=== PATIENT | female | born 1935 | race Caucasian/White ===

== ENCOUNTER 2019-03-21 19:22 | Inpatient (IN) | payer MEDICARE, BC ==
[2019-03-21] MEDS ORDERED: Sodium Chloride 0.9% 500 ML IV ONE (19:59)
--- NOTE | 2019-03-21 20:04 | EDM.PDOC ---
ED HPI GENERAL MEDICAL PROBLEM - General Chief Complaint: Syncope Stated Complaint: syncopal episode Time Seen by Provider: 03/21/19 19:35 Source of Information: Reports: Patient, EMS, Family History Limitations: Reports: No Limitations - History of Present Illness INITIAL COMMENTS - FREE TEXT/NARRATIVE: Patient presents with family via EMS after syncopal episode approximately 30 minutes prior to arrival patient states she was walking with a walker and her daughter was behind her when she had the syncopal episode her daughter called her daughter states she went out maybe 30 seconds. She was completely normal and responsive afterwards and has no complaints at this time. Per EMS arrival she was normotensive heart rates 140 she was alert and oriented x4 neurologically intact PT is status post left hip replacement surgery was done yesterday in [place] she was discharged today and arrived home approximately 2 or 3:00 states she has been doing fine she has been eating and drinking well and up and moving. Herself and her family denies any blood thinners that were given and she was not sent home on any as well. She was sent home on Lortab 5 mg for pain which she has had no trouble taking. She has a history of chronic A. fib for the last 4 to 5 years and has had no complications she also denies being on any blood thinners for the A. fib. She denies any chest pain palpitations shortness of breath or cough lightheadedness or dizziness just the syncopal episode Onset: Today Duration: Minutes: Quality: Reports: Other (No pain whatsoever) Associated Symptoms: Reports: Diaphoresis, Syncope. Denies: Confusion, Chest Pain, Cough, cough w sputum, Fever/Chills, Headaches, Malaise, Nausea/Vomiting, Shortness of Breath, Weakness - Related Data Allergies Allergy/AdvReac Type Severity Reaction Status Date / Time No Known Allergies Allergy Verified 03/21/19 19:59 Home Meds: Home Meds Aspirin [Halfprin] 81 mg PO DAILY 12/15/17 [History] Calcium Carbonate/Vitamin D3 [Calcium 600-Vit D3 800 Tab] 1 each PO DAILY [History] Flaxseed Oil [Flaxseed] 1,000 mg PO DAILY 12/15/17 [History] Metoprolol Tartrate [Lopressor] 25 mg PO BID 12/15/17 [History] Multivitamin [Multiple Vitamins] 1 each PO DAILY 12/15/17 [History] PARoxetine [Paxil] 10 mg PO BEDTIME 12/15/17 [History] Simvastatin 1 tab PO DAILY 12/15/17 [History] Tetrahydrozoline HCl [Visine] 15 ml OP Q4H PRN 12/15/17 [History] Aspirin 325 mg PO BID 03/21/19 [History] Hydrocodone/Acetaminophen [Hydrocodon-Acetaminophen 5-325] 1 each PO BID PRN [History] Past Medical History HEENT History: Reports: Hard of Hearing, Impaired Vision, Macular Degeneration Cardiovascular History: Reports: Afib, Arrhythmia, CAD, High Cholesterol, Hypertension Other Cardiovascular History: PROXYSMAL TACHYCARDIA Respiratory History: Reports: None Gastrointestinal History: Reports: Other (See Below) Other Gastrointestinal History: FM HX colon CA. + FITT TEST Genitourinary History: Reports: None CORE PILER History: Reports: Other (See Below) Other CORE PILER History: ABNOMAL PAP SMEAR Musculoskeletal History: Reports: Osteoarthritis Neurological History: Reports: None Psychiatric History: Reports: Anxiety, Depression Endocrine/Metabolic History: Reports: None Hematologic History: Reports: None Immunologic History: Reports: None Oncologic (Cancer) History: Reports: None Dermatologic History: Reports: None - Past Surgical History Head Surgeries/Procedures: Reports: None HEENT Surgical History: Reports: Cataract Surgery Cardiovascular Surgical History: Reports: Varicose Other Cardiovascular Surgeries/Procedures: RAYNAUD'S GI Surgical History: Reports: Colonoscopy Musculoskeletal Surgical History: Reports: Shoulder Replacement Social & Family History - Tobacco Use Smoking Status *Q: Never Smoker ED ROS GENERAL - Review of Systems Review Of Systems: See Below Constitutional: Reports: No Symptoms, Diaphoresis, Other (Patient states she felt flushed for a few seconds after the syncopal episode and felt like she was sweating all over). Denies: Fever, Chills, Malaise, Weakness, Fatigue, Decreased Appetite HEENT: Reports: No Symptoms Respiratory: Reports: No Symptoms. Denies: Shortness of Breath, Wheezing, Pleuritic Chest Pain, Cough, Sputum, Hemoptysis Cardiovascular: Reports: Syncope. Denies: Chest Pain, Blood Pressure Problem, Claudication, Dyspnea on Exertion, Edema, Lightheadedness, Orthopnea, Palpitations, PND Endocrine: Reports: No Symptoms GI/Abdominal: Reports: No Symptoms. Denies: Abdominal Pain, Bloody Stool, Difficulty Swallowing, Nausea, Vomiting : Reports: No Symptoms Musculoskeletal: Reports: No Symptoms. Denies: Leg Pain, Joint Swelling Skin: Reports: No Symptoms Neurological: Reports: No Symptoms, Syncope. Denies: Confusion, Dizziness, Headache, Numbness, Paresthesia, Pre-Existing Deficit, Tingling, Difficulty Walking, Weakness, Change in Speech, Gait Disturbance Psychiatric: Reports: No Symptoms Hematologic/Lymphatic: Reports: No Symptoms Immunologic: Reports: No Symptoms Free Text/Narrative/Comment: Per patient and daughter states she had no postop complications the surgery went fine - Physical Exam Exam: See Below Exam Limited By: No Limitations General Appearance: Alert, WD/WN, No Apparent Distress, Other (Cranial nerves II through XII are intact) Eye Exam: Bilateral Eye: EOMI, PERRL Ears: Normal External Exam Nose: Normal Inspection Throat/Mouth: Normal Inspection, Normal Lips, Normal Teeth, Normal Gums, Normal Oropharynx, Normal Voice, No Airway Compromise, Other (Moist mucous membranes) Head Exam: Atraumatic, Normocephalic Neck: Normal Inspection, Supple, Non-Tender, Full Range of Motion Respiratory/Chest: No Respiratory Distress, Lungs Clear, Normal Breath Sounds, No Accessory Muscle Use, Chest Non-Tender Cardiovascular: Normal Peripheral Pulses, Regular Rate, Rhythm, No Edema, No Gallop, No JVD, No Murmur, No Rub, Tachycardia GI/Abdominal: Normal Bowel Sounds, Non-Tender, No Organomegaly, No Distention Neuro Exam (Abbreviated): Alert, Oriented, CN II-XII Intact, Normal Cognition, Normal Gait, Normal Reflexes, No Motor/Sensory Deficits Back Exam: Full Range of Motion Extremities: Normal Inspection, Non-Tender, No Pedal Edema, Other (Patient has normal dorsiflexion plantar flexion of the left and right lower extremity exam to the left hip surgical incision looks well no signs or symptoms of dehiscence or secondary infection she has no tenderness palpation over bilateral calf with no swelling or erythema) Psychiatric: Normal Affect, Normal Mood Skin Exam: Warm, Dry, Intact, Normal Color, No Rash Course - Vital Signs Text/Narrative:: CBC BMP troponin EKG 500 mL normal saline bolus CT PE protocol negative PE Patient with a syncopal episode and tachycardia with a A. fib history will be placed inpatient under Dr. Giselle Headley's care Last Recorded V/S: Last Vital Signs Temp 36.8 C 03/21/19 19:37 Pulse 108 H 03/21/19 21:40 Resp 16 03/21/19 21:40 BP 108/49 L 03/21/19 21:40 Pulse Ox 100 03/21/19 21:40 - Orders/Labs/Meds Orders: Active Orders 24 hr Category Date Time Status EKG Documentation Completion [RC] STAT Care 03/21/19 19:55 Ordered PE Chest [Ang Chest] [CT] Stat Exams 03/21/19 20:55 Ordered CBC WITH AUTO DIFF [HEME] Stat Lab 03/21/19 19:55 Ordered Labs: Laboratory Tests 03/21/19 Range/Units 20:17 Sodium 138 (136-145) mmol/L Potassium 3.9 (3.5-5.1) mmol/L Chloride 104 (98-107) mmol/L Carbon Dioxide 25 (21-32) mmol/L Anion Gap 12.9 (10-20) mmol/L BUN 17 (7-18) mg/dL Creatinine 0.9 (0.55-1.02) mg/dL Est Cr Clr Drug Dosing TNP Estimated GFR (MDRD) 60 Glucose 199 H (74-106) mg/dL Calcium 7.5 L (8.5-10.1) mg/dL Troponin I < 0.017 (<=0.056) ng/mL Meds: Medications Discontinued Medications Generic Name Dose Route Start Last Admin Trade Name Freq PRN Reason Stop Dose Admin Sodium Chloride 500 mls @ 500 mls/hr 03/21/19 19:59 03/21/19 19:36 Normal Saline IV 03/21/19 20:58 500 mls/hr ONETIME ONE Administration Iopamidol 100 ml 03/21/19 21:03 03/21/19 21:23 Isovue-300 (61%) IVPUSH 03/21/19 21:04 100 ml ONETIME ONE Administration Metoprolol Tartrate 25 mg 03/21/19 20:58 03/21/19 21:40 Lopressor PO 03/21/19 20:59 25 mg NOW STA Administration Departure - Departure Time of Disposition: 22:00 Disposition: Admitted As Inpatient 66 Condition: Good Clinical Impression: Syncope and collapse, Tachycardia - Discharge Information *PRESCRIPTION DRUG MONITORING PROGRAM REVIEWED*: No *COPY OF PRESCRIPTION DRUG MONITORING REPORT IN PATIENT SUDEEP: No Referrals: Jaswinder Wise MD [Primary Care Provider] - Forms: ED Department Discharge Sepsis Event Note - Evaluation Sepsis Screening Result: No Definite Risk - Focused Exam Vital Signs: Vital Signs Temp Pulse Pulse Resp BP BP Pulse Ox 03/21/19 21:40 108 H 108 H 16 108/49 L 108/49 L 100 03/21/19 20:55 143 H 102/54 L 96 03/21/19 20:21 147 H 100/42 L 03/21/19 19:58 141 H 87/59 L 03/21/19 19:37 36.8 C 154 H 16 92/59 L 96 Date Exam was Performed: 03/21/19 Time Exam was Performed: 22:19 - Problem List & Annotations (1) Syncope and collapse SNOMED Code(s): 612181159 Code(s): R55 - SYNCOPE AND COLLAPSE Status: Acute Current Visit: Yes (2) Tachycardia SNOMED Code(s): 5475925 Code(s): R00.0 - TACHYCARDIA, UNSPECIFIED Status: Acute Current Visit: Yes - My Orders Last 24 Hours: My Active Orders 03/21/19 19:55 EKG Documentation Completion [RC] STAT CBC WITH AUTO DIFF [HEME] Stat 03/21/19 20:55 PE Chest [Ang Chest] [CT] Stat - Assessment/Plan Last 24 Hours: My Active Orders 03/21/19 19:55 EKG Documentation Completion [RC] STAT CBC WITH AUTO DIFF [HEME] Stat 03/21/19 20:55 PE Chest [Ang Chest] [CT] Stat
[2019-03-21 20:50] LABS: CHLORIDE,CL 104 mmol/L (98-107); SODIUM,NA 138 mmol/L (136-145)
[2019-03-21 20:53] LABS: ANION GAP 12.9 mmol/L (10-20)
[2019-03-21] MEDS ORDERED: Metoprolol Tartrate 25 MG Tab PO STA (20:58)
[2019-03-21] MEDS ORDERED: Iopamidol 612 MG/ML 100 ML Bottle IVPUSH ONE (21:03)
[2019-03-21] MEDS ORDERED: Acetaminophen 325 MG Tab PO PRN (23:09)
[2019-03-21] MEDS: Sodium Chloride 0.9% 1,000 ML IV SCH (23:40)
--- NOTE | 2019-03-22 04:10 | HP ---
CHIEF COMPLAINT: Syncope. Also, found to have anemia and tachycardia in the emergency room status post a left hip replacement on 03/20/[address] [facility] [address] Ang. HISTORY OF PRESENT ILLNESS: An 83-year-old female who had an uneventful planned left hip replacement at [facility] yesterday. She has had the right one done before. Her preoperative hemoglobin on the was actually an 11.5. She had a hemoglobin today of 10.3. 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 This was all done while she was in [place]. She was doing well, so it was felt that she could discharge home. Daughter states she had like some toast, a little bit of stuff to drink, took a pain pill this morning, then did not really eat or drink anything. Got home around 2 o'clock. She maybe was a little bit confused or weaker, got up ambulating with her walker, and she went down. She was down for about 30 seconds before she came to. She was mentating okay when she came to. She did not hit her head, but EMS arrived. Heart rates were in the 140s. She was brought into the ER. She does have a history of SVT and AFib even going back to 2005. The patient states she has no pain in that left hip. She was given full- dose aspirin for DVT prophylaxis, which aspirin can upset her stomach, but she has not had any stomach pain. She had a bowel movement this morning. She has not had any chest pain. No cough. No shortness of breath. No fever. ALLERGIES: Include none. MEDICATION LIST: Reviewed and does include metoprolol 12.5 mg twice daily, Paxil 10 mg daily, Zocor 5 mg at bedtime, Klonopin 0.5 mg at bedtime, however, she has not had a refill since like August, aspirin 81 mg daily and increased recently to 325 b.i.d., multivitamins daily, flaxseed, calcium and D. PAST MEDICAL HISTORY: Includes: 1. History of anxiety and panic disorder remotely, coronary artery disease due to positive stress testing, then she had medical management for a 70% narrowing of the first diagonal branch of the LAD, 50% tubular stenosis of the RCA. This was all back in 2005. She is continued on medical management. She has degenerative joint disease in the spine and hip. She has also had a shoulder replaced. 2. Hyperlipidemia. 3. Essential hypertension. 4. Mild obesity. 5. Paroxysmal tachycardia. Hospitalized for AFib in 2005. Not on Coumadin. 6. Raynaud's. 7. Stress incontinence in a female. 8. Varicose veins. PAST SURGICAL HISTORY: The patient has had both hips now replaced. She has had a left shoulder replacement. She has had eye surgery, colonoscopies, cataract surgeries, hand surgery for soft tissue malformation. SOCIAL HISTORY: The patient is . She lives at home with her . Her daughter from out of town is here today helping. Nonsmoker, nondrinker. FAMILY HISTORY: There is a family history of colon cancer. Both her parents are . REVIEW OF SYSTEMS: General: There have been no weight changes reported. No fever, no chills. HEENT: No sore throat. Cardiac: No chest pain, no palpitations that she really noted prior to this event of passing out. No chest pain. Respiratory: No cough. No shortness of breath. Abdomen: No abdominal pain. Otherwise, all systems reviewed and found to be negative unless otherwise stated. PHYSICAL EXAMINATION: Vital signs: Include on admission to ER 150 for heart rate, 92/59, her temperature was always normal, currently on admission 97.4, pulse down to 108, blood pressure 115/65, respiratory rate 18, and O2 of 100% on room air. General: She is in no acute distress. Heart: Regular rate and rhythm. S1, S2 without murmur. Lungs: Sounds are clear to auscultation bilaterally without crackles or wheezes. Skin: Overall is pale. Abdomen: Has positive bowel sounds. Soft, nontender. Extremities: Warm and dry. The left hip, upper part of the incision is examined. There is glue tape in place. It is intact. No drainage, no redness, but there is tenderness in that left thigh. Slight swelling compared to the right leg. There is no calf swelling. Homans sign negative. Mental Status: She is alert. She is orientated x3. LABORATORY WORK: Did show her to have a normal troponin. Calcium 7.5, glucose 199, sodium 138, potassium 3.9, chloride 104, bicarb 25, BUN 17, creatinine 0.9. CT for pulmonary embolism was performed. It did show her to have no blood clots or abnormalities in the lungs. EKG did show her to have a regular tachycardia. No P waves present, probably an SVT, narrow complexes. Later on, her telemetry when her heart rates were down around 108, appeared to have sinus tachycardia. ASSESSMENT: 1. Syncope. This spell was likely related to multiple factors including anemia after surgery, possibly not enough oral intake, little dehydration, maybe even some pain pills. It resolved, and the patient is doing better now. 2. Tachycardia. It appeared to be supraventricular tachycardia earlier and now sinus tachycardia. We will keep her on telemetry. We will continue her home metoprolol. 3. Hypotension. We are giving her some IV fluids. 4. Acute blood loss anemia, postoperative from her hip. Hemoglobin is down at 8.6 now. Morning lab draw is within 8 hours. We will recheck then. Could consider checking during the night, but with her cold agglutinins, we are not getting the most accurate readings and she is feeling much better now, not dizzy, or having any acute symptoms. We will also send off for type and screen. However, she may not be able to be transfused here if she has these antibodies, so may require transfer if her hemoglobin drops further. For this reason, I have stopped her aspirin and I am holding off on any Lovenox or other deep venous thrombosis prophylaxis right now. 5. Hyperglycemia. No history of diabetes. I am going to do some q.i.d. Accu- Cheks. 6. Recent left hip replacement. We will get her up and working with therapies. We will see how she does. See if she is stable to go home. 7. Anxiety. She is on her Paxil. 8. Hyperlipidemia. She will continue her Zocor. PLAN: At this point, the patient will be admitted for acute cares. She will need close monitoring of her hemoglobin. We will also get a thyroid level. Check her INR. Watch her closely for bleeding. Watch her heart rates. Give her IV metoprolol if needed. For now, we will continue some gentle IV rehydration. She is already hungry and asking to eat, so we got her a sandwich. She elects to be a code level 1. She will be on her Warner stockings for sure and likely SCDs if we are unable to restart the anticoagulation. Anticipate the patient will need a 2-night hospital stay. This was discussed with her and her family. MKA: 03/22/2019 00:04:01 MODL: 03/22/2019 04:02:42 /[id number]
[2019-03-22] MEDS: Sodium Chloride 0.9% 1,000 ML IV SCH (07:35)
[2019-03-22 07:43] LABS: CHLORIDE,CL 107 mmol/L (98-107); SODIUM,NA 141 mmol/L (136-145)
[2019-03-22 07:45] LABS: ANION GAP 10.7 mmol/L (10-20)
--- NOTE | 2019-03-22 07:51 | CT ---
[id number] CT/CTA Chest EXAM: CT ANGIOGRAM CHEST INDICATION: R/O PE S/P SURGERY COMPARISON: None. DISCUSSION: The pulmonary arteries are normal in appearance with no emboli identified. Dependent atelectasis at the lung bases bilaterally. The lungs are clear with no nodule, infiltrate or mass identified.No pleural or pericardial effusion. Normal heart size. No mediastinal, hilar or axillary lymphadenopathy. The imaged upper abdomen and osseous structures are unremarkable. IMPRESSION: 1. No evidence of acute pulmonary embolism. Tu Gutiérrez DO 03/22/19 0749 Thank you for allowing us to participate in the care of your patient.
[2019-03-22] MEDS ORDERED: Metoprolol Tartrate 50 MG Tab PO SCH (08:00)
[2019-03-22] MEDS: Simvastatin 10 MG Tab PO SCH (09:07)
[2019-03-22] MEDS: Metoprolol Tartrate 25 MG Tab PO SCH ×2 (09:13→19:33)
[2019-03-22] MEDS ORDERED: Metoprolol Succinate 25 MG Tab.ER PO ONE (17:21)
[2019-03-22] MEDS ORDERED: Metoprolol Tartrate 25 MG Tab PO ONE (17:23)
--- NOTE | 2019-03-22 18:17 | PN ---
Progress Note for THUY JACK Date: 03/22/2019 Room #: VM.215 SUBJECTIVE: This is hospital day #2 on an 83-year-old admitted for syncope with SVT and some sinus tachycardia, post left hip replacement with some blood loss anemia, hemoglobin down from 10 to 8.6 after surgery. The patient is feeling better today, just feels tired. No chest pain. No shortness of breath. She has not had any fevers, but she has had episodes of sort of hot flashes. Hip pain is under good control. She has not taken any pain pills. Her last narcotic was when she was in the hospital yesterday morning. She has been eating okay. Heart rates overnight were excellent. OBJECTIVE: Vital Signs: Her temperature 98.2, pulse 77, blood pressure 123/47, respiratory rate 14, O2 of 98% on room air. General: She is in no acute distress. Heart: Regular rate and rhythm. S1, S2 without murmur. Respiratory: Lungs sounds are clear to auscultation bilaterally without crackles or wheezes. Abdomen: Positive bowel sounds. Soft, nontender. Extremities: Warm and dry. No edema. No calf tenderness. Mental Status: She is alert, she is orientated x3. MUSCULOSKELETAL: The left thigh is examined and the hip, there is some mild tenderness. Does not appear to be any hematoma or increased swelling from last night. LABORATORY DATA: Lab work this morning did show her hemoglobin down to 8.0. INR normal at 1. Sodium 141, potassium 3.7, chloride 107, bicarb 27, BUN 12, creatinine 0.7, glucose 131, calcium 7.7, bilirubin 2, AST 41, alkaline phosphatase normal, LDH 373, albumin 2.5. ASSESSMENT AND PLAN: 1. Syncope, likely due to multiple factors including anemia, tachycardia, possibly some dehydration and the pain pills after surgery. At this point, the patient has improved; however, she continues to have anemia. We will continue to monitor her on telemetry. 2. Supraventricular tachycardia. The patient is back in a sinus rhythm. We will continue monitoring with telemetry. She will continue her metoprolol. remotely she is reported to have a fib but none has been recorded. 3. Acute blood loss anemia after surgery. We will repeat a hemoglobin this afternoon. Discussed with the patient if it drops further, like below 7, she would need to be transferred and for a transfusion as we do not have her blood here and it would need to be warmed. 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 Again, if she requires transfusion, she will need to transfer. 5. Anxiety. She is on her Paxil. 6. Hyperlipidemia. She is on her Zocor. 7. Left hip replacement. We will get her up and working with therapies. She is not requiring any narcotics. 8. DVT prophylaxis. If her hemoglobin remains stable, I will start her on Lovenox. I am holding on aspirin for now. She will have SCDs. 9. Hyperglycemia. We did some Accu-Cheks. They looked okay. We will discontinue. 10. Remote CAD never had interventions we will likely restart low dose aspirin when her hemoglobin is stable The plan at this point, the patient will continue acute care as discussed with the patient and her daughter. We will do close hemoglobin monitoring. I am going to stop IV fluids. We will get her doing incentive spirometry and up and working with PT. Anticipate she will need at least 1 more night acute stay or even possibly transfer for blood products if indicated. NOAMA: 03/22/2019 17:32:41 MODL: 03/22/2019 18:10:40 /[id number] ALEX
[2019-03-22] MEDS: PARoxetine 20 MG Tab PO SCH (19:33)
[2019-03-23 08:22] LABS: CHLORIDE,CL 110 mmol/L (98-107); SODIUM,NA 144 mmol/L (136-145)
[2019-03-23 08:26] LABS: ANION GAP 11.7 mmol/L (10-20)
[2019-03-23] MEDS: Metoprolol Tartrate 25 MG Tab PO SCH ×2 (09:21→20:00)
[2019-03-23] MEDS: Simvastatin 10 MG Tab PO SCH (09:22)
--- NOTE | 2019-03-23 13:03 | PN ---
Progress Note for THUY JACK Date: 03/23/2019 Room #: VM.215 SUBJECTIVE: This is hospital day #3 on an 83-year-old admitted with syncope after a left hip replacement on the . She came into the ER with SVT as well and a hemoglobin drop of 2 g. She was found to have a hemolytic anemia. Her bilirubin was up to 2, haptoglobin less than 10, LDH was 373 yesterday. Her hemoglobin which was down to 8.5 on the was 7.8 on the , repeated yesterday afternoon was 7.9. She was feeling okay other than just feeling tired. She has not had any chest pain. No cough. No shortness of breath. No fever. She actually underwent a CT PE protocol on admission, which did not show any abnormal lymph nodes or pna. She does give some history of feeling sweats. This has been even going on for several months. I looked in her record and she even had sweats back in 2015. She has also lost weight about 10 pounds last fall without really trying. She did try the SCDs yesterday, but they made her feel more warm. They had discovered even before her surgery she had cold agglutinin over at [facility]. Her hemoglobin preop was 11.5 prior to surgery, postop a.m. was 10.3. She says her hip pain is doing well, but she has a hard time with the leg being weak just lifting it, but she was able to do a hip flex in the bed. She has been making many trips to the bathroom with standby assistance. OBJECTIVE: Vital Signs: Today, her temperature 97.6, pulse 94, blood pressure 157/64, respiratory rate 18, O2 95% on room air. General: She is in no acute distress. Heart: Regular rate and rhythm. S1, S2 without murmur. Lungs: Sounds are clear to auscultation bilaterally without crackles or wheezes. Abdomen: Has positive bowel sounds. Soft, nontender. Extremities: Warm and dry. No edema in the calf. She does have some left thigh swelling, but no tenderness. This is not getting worse. Mental Status: She is alert and orientated x3. LABORATORY DATA: Lab work reviewed today shows that hemoglobin at 7.2. Her potassium 3.7, sodium 144, chloride 110, bicarb 26, BUN 8, creatinine 0.5, calcium 7.6, albumin 2.1. ASSESSMENT AND PLAN: 1. Syncope, likely due to anemia and supraventricular tachycardia. This has resolved. She is feeling better. She is off IV fluids. 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 Hemoglobin down to 7.2. I did discuss with [facility]. They recommended no transfusion and transfusions would want to be avoided. If it gets worse, she would need transfer for things like IVIG or Rituxan. For now, we will repeat hemoglobin at 1 p.m. today. We can start Lovenox with close monitoring. 3. Supraventricular tachycardia. She did have a run last evening. She got an extra dose of Lopressor and it helped. We will continue to monitor with telemetry. 4. Anxiety, she is on her Paxil. 5. Hyperlipidemia. 6. Left hip replacement. Her pain is controlled. She is not on narcotics. She is up working with therapies yesterday. She will walk with the nurses. She will get a shower today. 7. Deep vein thrombosis prophylaxis. She was on high dose aspirin that was stopped. She is not having any stomach pain. We will start Lovenox, I discussed with her 30 mg today. If hemoglobin remains stable, given her history of coronary artery disease, probably restart a low-dose aspirin tomorrow. 8. Hyperglycemia. She had Accu-Cheks, they looked okay, we discontinued them. 9. Remote coronary artery disease, stable without chest pain. 10.Mild malnutrition. She is tolerating a diet. Eating 100 % PLAN: At this point, the patient will continue on acute cares. We will do frequent hemoglobin monitoring at least twice a day to ensure that things are remaining stable. Right now, the patient is not overly symptomatic from her anemia. Her bilirubin has returned to normal, which is a good sign. Anticipate she will need another 1 to 2 nights of acute stay before possibly going over to swing bed. If symptoms get worse, we will need to transfer her to [place]. MKA: 03/23/2019 12:24:13 MODL: 03/23/2019 12:56:41 /[id number] ALEX
[2019-03-23] MEDS: Enoxaparin 30 MG/0.3 ML Syringe SUBCUT SCH (14:33)
[2019-03-23] MEDS: PARoxetine 20 MG Tab PO SCH (20:00)
[2019-03-24] MEDS: Simvastatin 10 MG Tab PO SCH (07:32)
[2019-03-24] MEDS: Metoprolol Tartrate 25 MG Tab PO SCH (07:33)
[2019-03-24 08:20] LABS: CHLORIDE,CL 109 mmol/L (98-107); SODIUM,NA 145 mmol/L (136-145)
[2019-03-24 08:22] LABS: ANION GAP 11.5 mmol/L (10-20)
[2019-03-24] MEDS ORDERED: Metoprolol Tartrate 25 MG Tab PO SCH (10:00)
[2019-03-24] MEDS ORDERED: Potassium Chloride 20 MEQ Tab.ER PO ONE (10:59)
--- NOTE | 2019-03-24 11:25 | PN ---
Progress Note for THUY JACK Date: 03/24/2019 Room #: VM.215 SUBJECTIVE: This is hospital day #4 on an 83-year-old admitted with syncope due to anemia and SVT after a left hip replacement on 03/20/2019. The patient's pain is under excellent control. Her main concern is not being able to sleep due to feeling very warm during the night. She is wearing a brief. She feels this might contribute. She states she would not have any issues with bowel or bladder, except sometimes just waiting for help and really she is doing well. They are just doing stand-by assistance. Otherwise, she did have a couple of more runs of SVT this morning, rates up to the 130s. She did not even notice them. She is on metoprolol. She has been afebrile. OBJECTIVE: Vital Signs: Temperature 97.4, pulse 94, blood pressure 158/63, respiratory rate 18, and O2 saturation of 95% on room air. General: She is in no acute distress. Heart: Regular rate and rhythm. S1, S2 without murmur. Respiratory: Lungs sounds are clear to auscultation bilaterally without crackles or wheezes. Abdomen: Has positive bowel sounds. It is soft and nontender. Extremities: Warm and dry. She has no edema in the calves. Her left thigh has some minimal swelling and bruising, but no significant hematoma or increase in size. Overall, the healing looks excellent. There is no redness and no drainage. She still has her dressing in place. We examined around the area. LABORATORY DATA: Lab work does show her hemoglobin up to 8.8. Sodium 145, potassium 3.5, chloride 109, bicarb 28, BUN 8, creatinine 0.6, and bilirubin 1.1. AST 31, ALT 23, and albumin 2.4. ASSESSMENT: 1. Syncope due to postoperative anemia, also with a hemolytic anemia from cold agglutinins and supraventricular tachycardia. This has resolved, the syncope that is, she is feeling excellent. 2. 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 Hemoglobin improved. Bilirubin went up just slightly. We will continue to monitor. No indication for transfer or transfusion. 3. Supraventricular tachycardia. Still having some runs of it this morning with elevated blood pressure. I am going to increase her Lopressor up to 50 b.i.d. 4. Essential hypertension, on Lopressor. 5. Anxiety. She is on Paxil. She is not interested in trying any Klonopin during the night to help with sleep. 6. Hyperlipidemia. 7. Left hip replacement. Her pain is controlled. She is moving well. She is taking some walks. She will be seen by therapy tomorrow and see if she requires swing bed or can be discharged home with Home Health. 8. Deep vein thrombosis prophylaxis. She was started on Lovenox yesterday. She is tolerating that. We will restart her low-dose aspirin today given her remote history of coronary disease, however, she has never had stenting. 9. Hyperglycemia. Blood sugars now have normalized. 10.Mild malnutrition. She is eating well. She is having bowel movements. PLAN: At this point, the patient will continue acute cares. We will repeat lab work tomorrow. We will continue to monitor with telemetry and increase her Lopressor. Anticipate either swing bed or discharge with Home Health tomorrow. MKA: 03/24/2019 10:59:07 MODL: 03/24/2019 11:21:00 /[id number]
[2019-03-24] MEDS: Enoxaparin 30 MG/0.3 ML Syringe SUBCUT SCH (12:11)
[2019-03-24] MEDS: PARoxetine 20 MG Tab PO SCH (20:29)
[2019-03-24] MEDS: Metoprolol Tartrate 50 MG Tab PO SCH (20:30)
[2019-03-25 07:13] LABS: ANION GAP 12.9 mmol/L (10-20); CHLORIDE,CL 109 mmol/L (98-107); SODIUM,NA 145 mmol/L (136-145)
[2019-03-25] MEDS: Simvastatin 10 MG Tab PO SCH (07:55)
[2019-03-25] MEDS: Metoprolol Tartrate 50 MG Tab PO SCH (07:55)
[2019-03-25] MEDS ORDERED: Magnesium Oxide 400 MG Tab PO SCH (08:30)
[2019-03-25] MEDS ORDERED: Aspirin 81 MG Tab.Chew PO SCH (10:01)
[2019-03-25] MEDS: Enoxaparin 30 MG/0.3 ML Syringe SUBCUT SCH (11:02)
--- NOTE | 2019-03-25 21:42 | PCM.DCSUM1 ---
Discharge Summary - Hospital Course Free Text/Narrative:: Final Diagnosis: -Recent L hip replacement -Postoperative syncope secondary to supraventricular tachycardia -Moderate postoperative blood loss, mild anemia Secondary Diagnoses: -Hx coronary disease -Hypertension, controlled -Remote Hx of atrial fibrillation 14 years earlier Reason for Admission: 3 days postop L hip replacement, uncomplicated, she was at home and had lightheadedness and then a syncopal spell. She did not have signs of postop infection. Hx during her hospitalization at [facility] of DX of cold agglutinins discovered while preparing preop blood. Initial Findings: -Tachycardia of 140,, narrow complex, reasonably regular -Mildly hypotensive -BMP normal -Hb 8.6 -Alert and oriented by the time of arrival Treatment and Course in Hospital: She got IV fluid, CT was done to R/O pulmonary embolus, negative. Hb stayed between 8 and 9, tachycardia resolved and she stayed in sinus rhythm with rate going down to 85-90. Her vigor improved over the next 2 days in Hospital. Wound remained clean and dry. Condition on Discharge: -Alert and lucid, walking with walker -Denies wound pain -Wound clean and dry -Heart sounds regular and normal -Lungs clear, no dyspnea -Hb 8.2 Discharge Plan: -Home with [facility] nurses -Keep postop surgery appointment in 10 days -Dressing change today and changed to a dry gauze dressing every 2 days at home Diagnosis: Stroke: No Modified [place] Scale: Slight Disable;Unable to Carry Out Prev Act.Able to Look After Affairs Modified [place] Scale Score: 2 - Discharge Data Discharge Date: 03/25/19 Discharge Disposition: Home, Self-Care 01 Condition: Good - Referral to Home Health Primary Care Physician: Jaswinder Wise MD - Patient Summary/Data Consults: Consultations 03/21/19 23:53 Consult to Case Management/Qm Consultant [CONS] Routine OT Evaluation and Treatment [CONS] Routine PT Evaluation and Treatment [CONS] Routine - Discharge Plan *PRESCRIPTION DRUG MONITORING PROGRAM REVIEWED*: Not Applicable *COPY OF PRESCRIPTION DRUG MONITORING REPORT IN PATIENT SUDEEP: Not Applicable Home Medications: Home Meds Aspirin [Halfprin] 81 mg PO DAILY 12/15/17 [History] Calcium Carbonate/Vitamin D3 [Calcium 600-Vit D3 800 Tab] 1 each PO DAILY [History] Flaxseed Oil [Flaxseed] 1,000 mg PO DAILY 12/15/17 [History] Metoprolol Tartrate [Lopressor] 25 mg PO BID 12/15/17 [History] Multivitamin [Multiple Vitamins] 1 each PO DAILY 12/15/17 [History] PARoxetine [Paxil] 10 mg PO BEDTIME 12/15/17 [History] Simvastatin 5 mg PO DAILY 12/15/17 [History] Tetrahydrozoline HCl [Visine] 15 ml OP Q4H PRN 12/15/17 [History] Aspirin 325 mg PO BID 03/21/19 [History] Hydrocodone/Acetaminophen [Hydrocodon-Acetaminophen 5-325] 1 each PO BID PRN [History] Acetaminophen [Tylenol] 650 mg PO Q4H PRN tablet 03/25/19 [Rx] Aspirin 81 mg PO WITHBREAKFAST tab.chew 03/25/19 [Rx] Forms: ED Department Discharge Referrals: Jaswinder Wise MD [Primary Care Provider] - - Discharge Summary/Plan Comment DC Time >30 min.: No - Patient Data Vitals - Most Recent: Last Vital Signs Temp 36.6 C 03/25/19 09:43 Pulse 75 03/25/19 09:43 Resp 20 03/25/19 09:43 BP 148/43 H 03/25/19 09:43 Pulse Ox 97 03/25/19 09:43 Weight - Most Recent: 60.781 kg I&O - Last 24 hours: Intake & Output 03/25/19 03/25/19 03/25/19 06:59 14:59 22:59 Intake Total 500 360 Balance 500 360 Lab Results - Last 24 hrs: Laboratory Results - last 24 hr 03/22/19 03/22/19 03/25/19 Range/Units 06:41 12:01 06:15 Hgb (12.0-16.0) g/dL Sodium 145 (136-145) mmol/L Potassium 3.9 (3.5-5.1) mmol/L Chloride 109 H (98-107) mmol/L Carbon Dioxide 27 (21-32) mmol/L Anion Gap 12.9 (10-20) mmol/L BUN 9 (7-18) mg/dL Creatinine 0.6 (0.55-1.02) mg/dL Est Cr Clr Drug Dosing 51.03 mL/min Estimated GFR (MDRD) > 60 Glucose 93 (74-106) mg/dL Calcium 7.5 L (8.5-10.1) mg/dL Corrected Calcium 8.86 (8.5-10.1) mg/dL Magnesium (1.8-2.4) mg/dL Total Bilirubin 1.1 H (0.2-1.0) mg/dL AST 28 (15-37) U/L ALT 23 (14-59) U/L Alkaline Phosphatase 52 (46-116) U/L Total Protein 5.6 L (6.4-8.2) g/dL Albumin 2.3 L (3.4-5.0) g/dL Globulin 3.3 Albumin/Globulin Ratio 0.70 Miscellaneous Test Blood Type UNKNOWN 03/25/19 03/25/19 Range/Units 06:15 06:15 Hgb 8.2 L (12.0-16.0) g/dL Sodium (136-145) mmol/L Potassium (3.5-5.1) mmol/L Chloride (98-107) mmol/L Carbon Dioxide (21-32) mmol/L Anion Gap (10-20) mmol/L BUN (7-18) mg/dL Creatinine (0.55-1.02) mg/dL Est Cr Clr Drug Dosing mL/min Estimated GFR (MDRD) Glucose (74-106) mg/dL Calcium (8.5-10.1) mg/dL Corrected Calcium (8.5-10.1) mg/dL Magnesium 1.6 L (1.8-2.4) mg/dL Total Bilirubin (0.2-1.0) mg/dL AST (15-37) U/L ALT (14-59) U/L Alkaline Phosphatase (46-116) U/L Total Protein (6.4-8.2) g/dL Albumin (3.4-5.0) g/dL Globulin Albumin/Globulin Ratio Miscellaneous Test Blood Type Med Orders - Current: Current Medications Discontinued Medications Acetaminophen (Tylenol) 650 mg PO Q4H PRN PRN Reason: Pain (Mild 1-3)/fever Aspirin (Aspirin) 81 mg PO WITHBREAKFAST [facility] Last Admin: 03/25/19 11:02 Dose: 81 mg Enoxaparin Sodium (Lovenox) 30 mg SUBCUT Q24H [facility] Last Admin: 03/25/19 11:02 Dose: 30 mg Sodium Chloride (Normal Saline) 500 mls @ 500 mls/hr IV ONETIME ONE Stop: 03/21/19 20:58 Last Admin: 03/21/19 19:36 Dose: 500 mls/hr Sodium Chloride (Normal Saline) 1,000 mls @ 125 mls/hr IV ASDIRECTED [facility] Last Admin: 03/22/19 07:35 Dose: 125 mls/hr Iopamidol (Isovue-300 (61%)) 100 ml IVPUSH ONETIME ONE Stop: 03/21/19 21:04 Last Admin: 03/21/19 21:23 Dose: 100 ml Magnesium Oxide (Magnesium Oxide) 400 mg PO DAILY [facility] Last Admin: 03/25/19 11:02 Dose: 400 mg Metoprolol Succinate (Toprol Xl) 25 mg PO ONETIME ONE Stop: 03/22/19 17:22 Last Admin: 03/22/19 18:01 Dose: Not Given Metoprolol Tartrate (Lopressor) 25 mg PO NOW STA Stop: 03/21/19 20:59 Last Admin: 03/21/19 21:40 Dose: 25 mg Metoprolol Tartrate (Lopressor) 25 mg PO BID [facility] Last Admin: 03/22/19 09:06 Dose: 25 mg Metoprolol Tartrate (Lopressor) 25 mg PO BID [facility] Last Admin: 03/24/19 07:33 Dose: 25 mg Metoprolol Tartrate (Lopressor) 25 mg PO ONETIME ONE Stop: 03/22/19 17:24 Last Admin: 03/22/19 17:39 Dose: 25 mg Metoprolol Tartrate (Lopressor) 50 mg PO BID [facility] Last Admin: 03/24/19 12:12 Dose: Not Given Metoprolol Tartrate (Lopressor) 50 mg PO BID [facility] Last Admin: 03/25/19 07:55 Dose: 50 mg Paroxetine HCl (Paxil) 10 mg PO BEDTIME [facility] Last Admin: 03/24/19 20:29 Dose: 10 mg Potassium Chloride (Klor-Con M20) 20 meq PO ONETIME ONE Stop: 03/24/19 11:00 Last Admin: 03/24/19 12:11 Dose: 20 meq Simvastatin (Zocor) 5 mg PO DAILY [facility] Last Admin: 03/25/19 07:55 Dose: 5 mg
--- NOTE | 2019-03-27 09:44 | PCM.DCSUM1 ---
Discharge Summary - Hospital Course Free Text/Narrative:: Addendum to Discharge Summary of 03/25/19: My discharge encounter with the patient on 03/25/19 was a [id number] encounter , note to my exam of her heart, lungs, and her level of alertness. In leaving Acute Care, we had to decide between the Swing Bed and going home, and she elects to go home, but will be home bound there because of her replacement just 5 days previous. She elects to have home care from [facility] and I have spoken with them and we will follow a common Care Plan. She will get advice from her surgeons on when to start Physical Therapy. She has instructions from Physical Therapy from her hospitalization and she will follow those exercises, will not be getting PT or OT. Because she has been found to have cold agglutinins, and is aware of that, she is worried about her postop anemia so she will get a hemoglobin test done on 03/28/19. She will not be seen in the clinic here but has appointment with Orthopedic Surgeon in 10 days. Diagnosis: Stroke: No Modified [place] Scale: Slight Disable;Unable to Carry Out Prev Act.Able to Look After Affairs Modified [place] Scale Score: 2 - Discharge Data Discharge Date: 03/25/19 Discharge Disposition: Home, Self-Care 01 Condition: Good - Referral to Home Health Primary Care Physician: Jaswinder Wise MD - Patient Summary/Data Consults: Consultations 03/21/19 23:53 Consult to Case Management/Glue Mounter Operator [CONS] Routine OT Evaluation and Treatment [CONS] Routine PT Evaluation and Treatment [CONS] Routine - Discharge Plan *PRESCRIPTION DRUG MONITORING PROGRAM REVIEWED*: Not Applicable *COPY OF PRESCRIPTION DRUG MONITORING REPORT IN PATIENT SUDEEP: Not Applicable Home Medications: Home Meds Aspirin [Halfprin] 81 mg PO DAILY 12/15/17 [History] Calcium Carbonate/Vitamin D3 [Calcium 600-Vit D3 800 Tab] 1 each PO DAILY [History] Flaxseed Oil [Flaxseed] 1,000 mg PO DAILY 12/15/17 [History] Metoprolol Tartrate [Lopressor] 25 mg PO BID 12/15/17 [History] Multivitamin [Multiple Vitamins] 1 each PO DAILY 12/15/17 [History] PARoxetine [Paxil] 10 mg PO BEDTIME 12/15/17 [History] Simvastatin 5 mg PO DAILY 12/15/17 [History] Tetrahydrozoline HCl [Visine] 15 ml OP Q4H PRN 12/15/17 [History] Aspirin 325 mg PO BID 03/21/19 [History] Hydrocodone/Acetaminophen [Hydrocodon-Acetaminophen 5-325] 1 each PO BID PRN [History] Acetaminophen [Tylenol] 650 mg PO Q4H PRN tablet 03/25/19 [Rx] Aspirin 81 mg PO WITHBREAKFAST tab.chew 03/25/19 [Rx] Forms: ED Department Discharge Referrals: Jaswinder Wise MD [Primary Care Provider] - - Discharge Summary/Plan Comment DC Time >30 min.: No - Patient Data Vitals - Most Recent: Last Vital Signs Temp 36.6 C 03/25/19 09:43 Pulse 75 03/25/19 09:43 Resp 20 03/25/19 09:43 BP 148/43 H 03/25/19 09:43 Pulse Ox 97 03/25/19 09:43 Weight - Most Recent: 60.781 kg Med Orders - Current: Current Medications Discontinued Medications Acetaminophen (Tylenol) 650 mg PO Q4H PRN PRN Reason: Pain (Mild 1-3)/fever Aspirin (Aspirin) 81 mg PO WITHBREAKFAST [facility] Last Admin: 03/25/19 11:02 Dose: 81 mg Enoxaparin Sodium (Lovenox) 30 mg SUBCUT Q24H [facility] Last Admin: 03/25/19 11:02 Dose: 30 mg Sodium Chloride (Normal Saline) 500 mls @ 500 mls/hr IV ONETIME ONE Stop: 03/21/19 20:58 Last Admin: 03/21/19 19:36 Dose: 500 mls/hr Sodium Chloride (Normal Saline) 1,000 mls @ 125 mls/hr IV ASDIRECTED [facility] Last Admin: 03/22/19 07:35 Dose: 125 mls/hr Iopamidol (Isovue-300 (61%)) 100 ml IVPUSH ONETIME ONE Stop: 03/21/19 21:04 Last Admin: 03/21/19 21:23 Dose: 100 ml Magnesium Oxide (Magnesium Oxide) 400 mg PO DAILY [facility] Last Admin: 03/25/19 11:02 Dose: 400 mg Metoprolol Succinate (Toprol Xl) 25 mg PO ONETIME ONE Stop: 03/22/19 17:22 Last Admin: 03/22/19 18:01 Dose: Not Given Metoprolol Tartrate (Lopressor) 25 mg PO NOW STA Stop: 03/21/19 20:59 Last Admin: 03/21/19 21:40 Dose: 25 mg Metoprolol Tartrate (Lopressor) 25 mg PO BID [facility] Last Admin: 03/22/19 09:06 Dose: 25 mg Metoprolol Tartrate (Lopressor) 25 mg PO BID [facility] Last Admin: 03/24/19 07:33 Dose: 25 mg Metoprolol Tartrate (Lopressor) 25 mg PO ONETIME ONE Stop: 03/22/19 17:24 Last Admin: 03/22/19 17:39 Dose: 25 mg Metoprolol Tartrate (Lopressor) 50 mg PO BID [facility] Last Admin: 03/24/19 12:12 Dose: Not Given Metoprolol Tartrate (Lopressor) 50 mg PO BID [facility] Last Admin: 03/25/19 07:55 Dose: 50 mg Paroxetine HCl (Paxil) 10 mg PO BEDTIME [facility] Last Admin: 03/24/19 20:29 Dose: 10 mg Potassium Chloride (Klor-Con M20) 20 meq PO ONETIME ONE Stop: 03/24/19 11:00 Last Admin: 03/24/19 12:11 Dose: 20 meq Simvastatin (Zocor) 5 mg PO DAILY [facility] Last Admin: 03/25/19 07:55 Dose: 5 mg
== END 2019-03-25 13:30 | disposition home or self-care (01) | DRG 315 ==
LOC: VM.ED 19:22 → VM.MS 22:21
PROVIDERS: ADMIT Internal Medicine; ATTEND Family Medicine
DX: R55 Syncope and collapse (principal); R00.0 Tachycardia, unspecified; H54.7 Unspecified visual loss; H91.90 Unspecified hearing loss, unspecified ear; H35.30 Unspecified macular degeneration; I48.20 Chronic atrial fibrillation, unspecified; I97.191 Other postprocedural cardiac functional disturbances following other surgery; D62 Acute posthemorrhagic anemia; I47.1 Supraventricular tachycardia; M19.90 Unspecified osteoarthritis, unspecified site; E44.1 Mild protein-calorie malnutrition; D59.1 Other autoimmune hemolytic anemias; Z98.49 Cataract extraction status, unspecified eye; Z96.619 Presence of unspecified artificial shoulder joint; F41.9 Anxiety disorder, unspecified; E78.5 Hyperlipidemia, unspecified; Z96.642 Presence of left artificial hip joint; E78.00 Pure hypercholesterolemia, unspecified; F32.9 Major depressive disorder, single episode, unspecified; I25.10 Atherosclerotic heart disease of native coronary artery without angina pectoris; T50.905A Adverse effect of unspecified drugs, medicaments and biological substances, initial encounter; I10 Essential (primary) hypertension; Z79.82 Long term (current) use of aspirin; Z79.899 Other long term (current) drug therapy; Z68.26 Body mass index [BMI] 26.0-26.9, adult
CPT/HCPCS: 36415; 71275; 80048; 80053; 82962; 83010; 83615; 83735; 84443; 84484; 85018; 85025; 85610; 86850; 86900; 86901; 93005; 94760; 96360; 97110-GP; 97161-GP; 97165-GO; 99285-25; 99285-GF; A9270-GY; J1650; J7030; J7040; Q9967

== ENCOUNTER 2019-03-30 08:58 | Emergency (ER) | payer MEDICARE, BC ==
--- NOTE | 2019-03-30 09:49 | EDM.PDOC ---
ED HPI GENERAL MEDICAL PROBLEM - General Chief Complaint: General Stated Complaint: NO ENERGY Time Seen by Provider: 03/30/19 09:30 Source of Information: Reports: Patient, Family History Limitations: Reports: No Limitations - History of Present Illness INITIAL COMMENTS - FREE TEXT/NARRATIVE: Patient states that she says she has little to no energy and some just generalized fatigue and weakness over the last couple of weeks status post left hip surgery. She was placed inpatient here at [facility] stating secondary to low H &H she was not transfused secondary to a coagulopathic/antigen in her blood she was observed and discharged home this past Monday with no complications. She states she did very well here in the hospital and has been doing well at home but just not feeling like she has any energy. She has no complications no other complaints states she has been eating and drinking normally has been up and walking fine the hip this gave her no problems whatsoever She denies any syncopal type episodes chest pain palpitations lightheadedness or dizziness no headaches Improves with: Reports: None Worsens with: Reports: None - Related Data Allergies Allergy/AdvReac Type Severity Reaction Status Date / Time No Known Allergies Allergy Verified 03/21/19 19:59 Home Meds: Home Meds Aspirin [Halfprin] 81 mg PO DAILY 12/15/17 [History] Calcium Carbonate/Vitamin D3 [Calcium 600-Vit D3 800 Tab] 1 each PO DAILY [History] Flaxseed Oil [Flaxseed] 1,000 mg PO DAILY 12/15/17 [History] Metoprolol Tartrate [Lopressor] 25 mg PO BID 12/15/17 [History] Multivitamin [Multiple Vitamins] 1 each PO DAILY 12/15/17 [History] PARoxetine [Paxil] 10 mg PO BEDTIME 12/15/17 [History] Simvastatin 5 mg PO DAILY 12/15/17 [History] Tetrahydrozoline HCl [Visine] 15 ml OP Q4H PRN 12/15/17 [History] Hydrocodone/Acetaminophen [Hydrocodon-Acetaminophen 5-325] 1 each PO BID PRN [History] Acetaminophen [Tylenol] 650 mg PO Q4H PRN tablet 03/25/19 [Rx] Aspirin 81 mg PO WITHBREAKFAST tab.chew 03/25/19 [Rx] Past Medical History HEENT History: Reports: Hard of Hearing, Impaired Vision, Macular Degeneration Cardiovascular History: Reports: Afib, Arrhythmia, CAD, High Cholesterol, Hypertension Other Cardiovascular History: PROXYSMAL TACHYCARDIA Respiratory History: Reports: None Gastrointestinal History: Reports: Other (See Below) Other Gastrointestinal History: FM HX colon CA. + FITT TEST Genitourinary History: Reports: None ENGRAVER JEWELRY History: Reports: Other (See Below) Other ENGRAVER JEWELRY History: ABNOMAL PAP SMEAR Musculoskeletal History: Reports: Osteoarthritis Neurological History: Reports: None Psychiatric History: Reports: Anxiety, Depression Endocrine/Metabolic History: Reports: None Hematologic History: Reports: None Immunologic History: Reports: None Oncologic (Cancer) History: Reports: None Dermatologic History: Reports: None - Past Surgical History Head Surgeries/Procedures: Reports: None HEENT Surgical History: Reports: Cataract Surgery Cardiovascular Surgical History: Reports: Varicose Other Cardiovascular Surgeries/Procedures: RAYNAUD'S GI Surgical History: Reports: Colonoscopy Musculoskeletal Surgical History: Reports: Shoulder Replacement ED ROS GENERAL - Review of Systems Review Of Systems: See Below Constitutional: Reports: Weakness, Fatigue. Denies: No Symptoms, Fever, Chills , Malaise, Diaphoresis, Decreased Appetite HEENT: Reports: No Symptoms Respiratory: Reports: No Symptoms Cardiovascular: Reports: No Symptoms Endocrine: Reports: Fatigue. Denies: No Symptoms GI/Abdominal: Reports: No Symptoms. Denies: Abdominal Pain, Anorexia, Bloody Stool, Constipation, Decreased Appetite, Hematemesis, Hematochezia, Nausea : Reports: No Symptoms Musculoskeletal: Reports: No Symptoms Skin: Reports: No Symptoms Neurological: Reports: No Symptoms Psychiatric: Reports: No Symptoms Hematologic/Lymphatic: Reports: No Symptoms. Denies: Anemia, Easy Bleeding, Easy Bruising Immunologic: Reports: No Symptoms ED EXAM, GENERAL - Physical Exam Exam: See Below Exam Limited By: No Limitations General Appearance: Alert, WD/WN, No Apparent Distress Eye Exam: Bilateral Eye: EOMI, PERRL Nose: Normal Inspection, Normal Mucosa, No Blood. No: Nasal Flaring Throat/Mouth: Normal Inspection, Normal Lips, Normal Teeth, Normal Gums, Normal Oropharynx, Normal Voice, No Airway Compromise, Other (Moist mucous membranes) Head: Atraumatic, Normocephalic Neck: Normal Inspection, Supple, Non-Tender, Full Range of Motion Respiratory/Chest: No Respiratory Distress, Lungs Clear, Normal Breath Sounds, No Accessory Muscle Use, Chest Non-Tender Cardiovascular: Normal Peripheral Pulses, Regular Rate, Rhythm, No Gallop, No JVD, No Murmur, No Rub, Other (+1 pedal edema to the left lower extremity at the ankle no tenderness to palpation over the calf no edema no erythema). No: No Edema GI/Abdominal: Normal Bowel Sounds, Soft, Non-Tender, No Organomegaly, No Distention, No Abnormal Bruit, No Mass. No: Distended, Guarding, Rigid, Rebound , Tender Back Exam: Full Range of Motion Extremities: Normal Inspection, Normal Range of Motion, Non-Tender, Normal Capillary Refill, Other (Patient has 5 of 5 upper extremity lower extremity with equal fur repair inspector bilateral). No: No Pedal Edema Neurological: Alert, Oriented, CN II-XII Intact, Normal Cognition, Normal Gait, No Motor/Sensory Deficits, Other (Patient has a normal gait with roller walker) Psychiatric: Normal Affect, Normal Mood Skin Exam: Warm, Dry, Intact, Normal Color, No Rash Course - Vital Signs Text/Narrative:: CBC BMP urinalysis patient shows no signs or symptoms of dehydration she has normal skin turgor Patient has an abnormal antigen with her CBC and has had over the last multiple times is been checked her hemoglobin and hematocrit is stable 9.3 today and is increased from the last visit she had 8.2 BMP within normal limits Urinalysis 30 protein trace leukocytes but moderate squamous cells I believe this might be contaminant will send for culture and sensitivity Spoke with patient and family are okay with diagnosis they are glad that the hemoglobin is started increasing they state they will follow-up this week with a primary care provider they have a follow-up with the surgeon on 06 April Last Recorded V/S: Last Vital Signs Temp 36.6 C 03/30/19 09:20 Pulse 76 03/30/19 09:20 Resp 16 03/30/19 09:20 BP 153/50 H 03/30/19 09:20 Pulse Ox 100 03/30/19 09:20 - Orders/Labs/Meds Labs: Laboratory Tests 03/30/19 03/30/19 03/30/19 Range/Units 09:45 09:52 10:17 WBC Cancelled Corrected WBC Cancelled RBC Cancelled Hgb 9.3 L (12.0-16.0) g/dL Hct Cancelled MCV Cancelled MCH Cancelled MCHC Cancelled RDW Coeff of Marely Cancelled Plt Count Cancelled Neut % (Auto) Cancelled Lymph % (Auto) Cancelled [place] % (Auto) Cancelled Eos % (Auto) Cancelled Baso % (Auto) Cancelled Add Manual Diff Cancelled Neutrophils % (Manual) Cancelled Band Neutrophils % Cancelled Lymphocytes % (Manual) Cancelled Reactive Lymphs % Cancelled Atypical Lymphs % Cancelled Monocytes % (Manual) Cancelled Eosinophils % (Manual) Cancelled Basophils % (Manual) Cancelled Metamyelocytes % Cancelled Myelocytes % Cancelled Promyelocytes % Cancelled Blast Cells % Cancelled Nucleated RBC % Cancelled Nucleated RBCs Cancelled Differential Comment Cancelled Hypersegmented Neuts Cancelled Vacuolated Monocytes Cancelled Smudge Cells Cancelled Toxic Granulation Cancelled Dohle Bodies Cancelled Pelger-Huet Cells Cancelled WBC Morphology Comment Cancelled Platelet Estimate Cancelled Clumped Platelets Cancelled Giant Platelets Cancelled Immature Plt Fraction Cancelled Plt Morphology Comment Cancelled Polychromasia Cancelled Hypochromasia Cancelled Poikilocytosis Cancelled Basophilic Stippling Cancelled Anisocytosis Cancelled Microcytosis Cancelled Macrocytosis Cancelled Spherocytes Cancelled Pappenheimer Bodies Cancelled Siderocytes Cancelled Sickle Cells Cancelled Target Cells Cancelled Tear Drop Cells Cancelled Ovalocytes Cancelled Stomatocytes Cancelled Helmet Cells Cancelled [place] Bodies Cancelled Hebo Rings Cancelled Marco Cells Cancelled Acanthocytes (Spur) Cancelled Rouleaux Cancelled Schistocytes Cancelled RBC Morph Comment Cancelled Smear Path Review Cancelled Deon Bodies Cancelled Sodium 142 (136-145) mmol/L Potassium 4.1 (3.5-5.1) mmol/L Chloride 103 (98-107) mmol/L Carbon Dioxide 26 (21-32) mmol/L Anion Gap 17.1 (10-20) mmol/L BUN 9 (7-18) mg/dL Creatinine 0.8 (0.55-1.02) mg/dL Est Cr Clr Drug Dosing 38.27 mL/min Estimated GFR (MDRD) > 60 Glucose 116 H (74-106) mg/dL Calcium 8.3 L (8.5-10.1) mg/dL Urine Color Dark yellow H (YELLOW) Urine Appearance Cloudy H (CLEAR) Urine pH 6.5 (5.0-8.0) Ur Specific [place] 1.020 Urine Protein 30 H (NEGATIVE) mg/dL Urine Glucose (UA) Negative (NEGATIVE) mg/dL Urine Ketones Trace H (NEGATIVE) mg/dL Urine Occult Blood Moderate H (NEGATIVE) Urine Nitrite Negative (NEGATIVE) Urine Bilirubin Small H (NEGATIVE) Urine Urobilinogen 2.0 H (0.2) EU/dL Ur Leukocyte Esterase Trace H (NEGATIVE) Urine RBC 5-10 H (NOT SEEN) /HPF Urine WBC 0-5 (NOT SEEN) /HPF Ur Squamous Epith Cells Moderate H (NEGATIVE) /HPF Urine Bacteria Not seen (NEGATIVE) /HPF Urine Mucus Few H (NEGATIVE) /LPF Slides for Path Review Cancelled Departure - Departure Time of Disposition: 10:45 Disposition: Home, Self-Care 01 Condition: Good Clinical Impression: Fatigue - Discharge Information *PRESCRIPTION DRUG MONITORING PROGRAM REVIEWED*: No *COPY OF PRESCRIPTION DRUG MONITORING REPORT IN PATIENT SUDEEP: No Referrals: Jaswinder Wise MD [Primary Care Provider] - Forms: ED Department Discharge Sepsis Event Note - Focused Exam Vital Signs: Vital Signs Temp Pulse Resp BP Pulse Ox 03/30/19 09:20 36.6 C 76 16 153/50 H 100 Date Exam was Performed: 03/30/19 Time Exam was Performed: 10:40 - Problem List & Annotations (1) Fatigue SNOMED Code(s): 44104535 Code(s): R53.83 - OTHER FATIGUE Status: Acute Current Visit: Yes
[2019-03-30 10:14] LABS: CHLORIDE,CL 103 mmol/L (98-107); SODIUM,NA 142 mmol/L (136-145)
[2019-03-30 10:22] LABS: ANION GAP 17.1 mmol/L (10-20)
== END 2019-03-30 11:00 | disposition home or self-care (01) ==
LOC: VM.ED 08:58
DX: R53.83 Other fatigue (principal); I10 Essential (primary) hypertension; I25.10 Atherosclerotic heart disease of native coronary artery without angina pectoris; I48.91 Unspecified atrial fibrillation; E78.00 Pure hypercholesterolemia, unspecified; M19.90 Unspecified osteoarthritis, unspecified site; F41.9 Anxiety disorder, unspecified; F32.9 Major depressive disorder, single episode, unspecified; Z79.82 Long term (current) use of aspirin; Z79.899 Other long term (current) drug therapy
CPT/HCPCS: 36415; 80048; 81001; 85018; 87086; 99283; 99284-GF

== ENCOUNTER 2020-03-04 14:34 | Emergency (ER) | payer MEDICARE, BC ==
[2020-03-04] MEDS ORDERED: Ondansetron 4 MG Tab.DIS PO ONE (14:46)
[2020-03-04] MEDS ORDERED: Orphenadrine 60 MG/2 ML Inj IM STA (14:46)
--- NOTE | 2020-03-04 14:52 | EDM.PDOC ---
ED HPI GENERAL MEDICAL PROBLEM - General Chief Complaint: Lower Extremity Injury/Pain Stated Complaint: PAIN AND NAUSEA Time Seen by Provider: 03/04/20 14:35 Source of Information: Reports: Patient History Limitations: Reports: No Limitations - History of Present Illness INITIAL COMMENTS - FREE TEXT/NARRATIVE: Patient comes emergency department today with complaints of a dreadful pain to her right hip. Patient woke this morning and she actually had some soreness to her left hip. She was quite physically active around the house this morning doing some cleaning vacuuming and shaking out of rugs. About 11:00 the left hip pain had resolved but she has some severe pain down the right posterior midline buttocks that radiates down the back of her right leg. She has no pain when she is just sitting still or not ambulating. Gets worse with movement ambulation. It feels better when she flexes her hip on the right. She has no hematuria dysuria or urinary frequency. No flank pain. She has no pain when she is just sitting in a comfortable position. She does complain of some nausea although she has not eaten today. She has no abdominal pain or vomiting. No black or tarry stools diarrhea. No chest pain no shortness of breath or difficulty breathing. No fever no chills. No Covid exposure no Covid symptoms. 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 She has had no recent falls trauma or injury. She denies any paresthesia or change in the functionality of her upper or lower extremities. She denies any loss of bowel or bladder. Eyes any change in her bowel or bladder habits as well. Right Hip Pain Score (Numeric/FACES): 5 - Related Data Allergies Allergy/AdvReac Type Severity Reaction Status Date / Time No Known Allergies Allergy Verified 03/04/20 14:42 Home Meds: Home Meds Calcium Carbonate/Vitamin D3 [Calcium 600-Vit D3 800 Tab] 1 each PO DAILY 12/15/17 [History] Flaxseed Oil [Flaxseed] 1,000 mg PO DAILY 12/15/17 [History] Metoprolol Tartrate [Lopressor] 25 mg PO BID 12/15/17 [History] Multivitamin [Multiple Vitamins] 1 each PO DAILY 12/15/17 [History] PARoxetine [Paxil] 10 mg PO BEDTIME 12/15/17 [History] Simvastatin 5 mg PO DAILY 12/15/17 [History] Acetaminophen [Tylenol] 650 mg PO Q4H PRN tablet 03/25/19 [Rx] Aspirin 81 mg PO WITHBREAKFAST tab.chew 03/25/19 [Rx] Cyclobenzaprine [Flexeril] 5 mg PO TID PRN #9 tab 03/04/20 [Rx] Folic Acid 1 mg PO DAILY 03/04/20 [History] predniSONE [Prednisone] 20 mg PO DAILY #5 tablet 03/04/20 [Rx] Past Medical History HEENT History: Reports: Hard of Hearing, Impaired Vision, Macular Degeneration Cardiovascular History: Reports: Afib, Arrhythmia, CAD, High Cholesterol, Hypertension Other Cardiovascular History: PROXYSMAL TACHYCARDIA Respiratory History: Reports: None Gastrointestinal History: Reports: Other (See Below) Other Gastrointestinal History: FM HX colon CA. + FITT TEST Genitourinary History: Reports: None CLAIMS SUPPORT SPECIALIST History: Reports: Other (See Below) Other CLAIMS SUPPORT SPECIALIST History: ABNOMAL PAP SMEAR Musculoskeletal History: Reports: Osteoarthritis Neurological History: Reports: None Psychiatric History: Reports: Anxiety, Depression Endocrine/Metabolic History: Reports: None Hematologic History: Reports: None Immunologic History: Reports: None Oncologic (Cancer) History: Reports: None Dermatologic History: Reports: None - Past Surgical History Head Surgeries/Procedures: Reports: None HEENT Surgical History: Reports: Cataract Surgery Cardiovascular Surgical History: Reports: Varicose Other Cardiovascular Surgeries/Procedures: RAYNAUD'S GI Surgical History: Reports: Colonoscopy Musculoskeletal Surgical History: Reports: Shoulder Replacement Review of Systems - Review of Systems Review Of Systems: Comprehensive ROS is negative, except as noted in HPI. ED EXAM, GENERAL - Physical Exam Exam: See Below Exam Limited By: No Limitations General Appearance: Alert, WD/WN, No Apparent Distress Respiratory/Chest: No Respiratory Distress Cardiovascular: Normal Peripheral Pulses Peripheral Pulses: 2+: Posterior Tibial (L), Posterior Tibial (R), Dorsalis Pedis (L), Dorsalis Pedis (R) GI/Abdominal: Normal Bowel Sounds, Soft, Non-Tender, Pelvis Stable Back Exam: Normal Inspection, Other (Palpation down the midline of the right buttocks does elicit some tenderness which stimulates the pain that brought her into the emergency department. There is no bruising swelling ecchymosis bony deformities or step-offs. No other signs of trauma. There is no rash or lesions.). No: CVA Tenderness (L), CVA Tenderness (R), Decreased Range of Motion Extremities: Normal Inspection (Examination of the right hip. She has no tenderness surrounding the anterior lateral aspect of the hip. She does have some tenderness of the right midline gluteal region concerning for sciatic type concern. She has no pain with abduction or passive range of motion although she does have pain in the right midline gluteal region as she adducts across the midline. SHe has a negative straight leg raise bilaterally. DTRs in the lower extremities are 2+ equal bilaterall at patella and post tibs. ) Neurological: Alert, Oriented, CN II-XII Intact, Normal Cognition, No Motor/Sensory Deficits Psychiatric: Normal Affect, Normal Mood Skin Exam: Warm, Dry, Intact, Normal Color Course - Vital Signs Last Recorded V/S: Last Vital Signs Temp 97.4 F 03/04/20 14:42 Pulse 61 03/04/20 14:42 Resp 16 03/04/20 14:42 BP 158/71 H 03/04/20 14:42 Pulse Ox 96 03/04/20 14:42 - Orders/Labs/Meds Meds: Medications Discontinued Medications Generic Name Dose Route Start Last Admin Trade Name Freq PRN Reason Stop Dose Admin Ondansetron HCl 4 mg 03/04/20 14:46 03/04/20 14:53 Zofran Odt PO 03/04/20 14:47 4 mg ONETIME ONE Administration Orphenadrine Citrate 30 mg 03/04/20 14:46 03/04/20 14:52 Norflex IM 03/04/20 14:47 30 mg NOW STA Administration - Radiology Interpretation Free Text/Narrative:: X-ray of the right hip to include the pelvis per radiology shows bilateral prosthesis appear intact. Some degenerative changes of the lumbar spine. No acute plain film abnormality. - Re-Assessments/Exams Free Text/Narrative Re-Assessment/Exam: 03/04/20 14:56 norflex 30mg IM Xray right hip pelvis. 03/04/20 15:50 Patient had complete resolution of her symptoms with the above therapy. The x- ray was negative. This is really the sequelae of sciatica most likely due to some compensation with some left hip discomfort resolved on its own. Physical therapy will be best for this patient at this time. We will send her home with some Flexeril and steroids as well. She is comfortable with this plan and her questions are answered. Departure - Departure Time of Disposition: 15:38 Disposition: Home, Self-Care 01 Clinical Impression: Sciatica Qualifiers: Laterality: right Qualified Code(s): M54.31 - Sciatica, right side - Discharge Information Instructions: Sciatica, [id number], Pain Medicine Instructions, [id number] Referrals: Giselle Headley, [Primary Care Provider] - Forms: ED Department Discharge Additional Instructions: Tylenol and or Ibuprofen as needed for pain. Keep mobile and active and consider the stretches supplied from the ED for your sciatica pain. Prednisone 20 mg daily for the next 5 days. Start today. RX sent to the pharmacy. Flexeril, 1 tablet three times a day as needed for pain. Caution sedation RX se nt to [facility]. Consider self referral to Physical therapy if not improving in the next few days. Return to the ED if new or worsening symptoms. Follow up with PCP in a week if not improving. Sepsis Event Note (ED) - Focused Exam Vital Signs: Vital Signs Temp Pulse Resp BP Pulse Ox 03/04/20 14:42 97.4 F 61 16 158/71 H 96
--- NOTE | 2020-03-04 15:25 | CR ---
[id number] RAD/RAD Pelvis 1V W 2V Right Hip Exam: RAD Pelvis 1V W 2V Right Hip Clinical Data: RIGHT HIP PAIN HISTORY OF PROSTHESIS COMPARISON: CORRELATION IS MADE WITH THE CAT SCAN OF APRIL 19, 2019 FINDINGS: The bilaterally prostheses appear intact Tubal ligation surgery is seen There are degenerative changes of the lumbar spine IMPRESSION: NO ACUTE PLAIN FILM ABNORMALITY Vernon Cameron MD 03/04/20 0811 Thank you for allowing us to participate in the care of your patient.
== END 2020-03-04 16:00 | disposition home or self-care (01) ==
LOC: VM.ED 14:34
DX: M25.551 Pain in right hip (principal); I48.91 Unspecified atrial fibrillation; I25.10 Atherosclerotic heart disease of native coronary artery without angina pectoris; E78.00 Pure hypercholesterolemia, unspecified; I10 Essential (primary) hypertension; M19.90 Unspecified osteoarthritis, unspecified site; F41.9 Anxiety disorder, unspecified; F32.9 Major depressive disorder, single episode, unspecified; Z79.899 Other long term (current) drug therapy; Z79.82 Long term (current) use of aspirin
CPT/HCPCS: 96372; 99283; A9270-GY; J2360